=== PATIENT | female | born 1940 | race Caucasian/White ===

== ENCOUNTER 2016-08-07 10:18 | Emergency (ER) | payer OTHER ==
--- NOTE | 2016-08-07 11:17 | EKG Report ---
Test Performed on : 08/07/2016 10:55:06 AM Test Reason : shoulder/arm pain Blood Pressure : / mmHG Vent. Rate : 072 BPM Atrial Rate : 072 BPM P-R Int : 120 ms QRS Dur : 086 ms QT Int : 386 ms P-R-T Axes : 045 -10 016 degrees QTc Int : 422 ms Normal sinus rhythm. Inferior infarct , age undetermined Abnormal ECG When compared with ECG of 17-APR-2012 20:41, No significant change was found Unconfirmed Result
--- NOTE | 2016-08-07 11:31 | ED EKG INTERP ---
EKG Interpretation - EKG Time of EKG reading by physician:: 10:55 EKG Read and Signed by:: Jun Fuller EKG Interpretation (*Must complete 3 of following elements*): Abnormal ( inferior infarct age undetermined) Rate: 72 Rhythm: nsr [place]: normal QRS: normal Attestation - Scribe Verification/Attestation Scribe:: Linda Giron Acting as Scribe for:: Jun Fuller Scribe documention review:: This chart was documented by a scribe and accurately reflects the service the provider performed and the decisions made by the provider. Physician Attestation - Physician Attestation I, the provider, attest to the following statement:: Jun Fuller Physician documentation Attestation:: This documentation recorded by the scribe accurately reflects the service I personally performed and the decisions made by me.
--- NOTE | 2016-08-07 12:27 | PROVIDER DOCUMENTATION ---
HPI-Musculoskeletal Pain/Inj - GENERAL Chief Complaint: Extremity Pain Stated Complaint: SHOULDER/ARM PAIN Time Seen by Provider: 08/07/16 12:16 Source: patient - HX OF PRESENT ILLNESS-MUSKULOSKELTAL Nature of Presenting Problem: 76 yof presents to er with cc of left arm pain denies any injuries reports has arthritis. Reprots just wanted to make sure it wasnt her heart and doesn't want any medications or imaging. Quality of Pain: reports: burning Severity in ED: moderate Onset/Duration: other (long time) Timing: still present Any recent injury?: No Locality of Occurance: Home Similar Symptoms Previously?: Yes Recently seen or treated by another doctor?: No Review of Systems - Adult - REVIEW OF SYSTEMS - ADULT Constitutional: denies: chills, fever, fatique Eyes: reports: no symptoms reported Ears, Nose, Mouth & Throat: reports: no symptoms reported Cardiovascular: denies: chest pain, irregular heart rate, orthopnea, syncope Respiratory: reports: no symptoms reported Gastrointestinal: reports: no symptoms reported Genitourinary: reports: no symptoms reported Musculoskeletal: reports: joint pain. denies: frequent leg cramps (arm/shoulder ), joint swelling, muscle weakness, neck pain Integumentary: reports: no symptoms reported Neurological: reports: no symptoms reported Psychiatric: reports: no symptoms reported Endocrine: reports: no symptoms reported Hematologic/Lymphatic: reports: no symptoms reported Allergic/Immunologic: reports: no symptoms reported All Other Systems: Reviewed and Negative Past History - Adult - PAST MEDICAL HISTORY-ADULT Review of Records: reports: Nursing Assessment Review, Medications Reviewed Major Childhood Illnesses: reports: denies history Endocrine/Immune: reports: thyroid disorder - PRIOR SURGERIES/PROCEDURES Surgical/Procedure History: reports: hysterectomy, tonsillectomy, orthopedic ( extremity) (shoulder sx) Physical Exam-Injury Related - Physical Exam-Injury Related Initial Vital Signs Reviewed: Yes General Appearance: appears well, alert, no apparent distress Eyes: PERRL/EOMI Head, Ears, Nose, Mouth & Throat: normal ENT inspection, TMs normal, pharynx normal Neck: non-tender, full range of motion, supple, normal inspection Respiratory: chest non-tender, lungs clear, normal breath sounds, no pleuratic chest pain, no respiratory distress, no accessory muscle use Cardiovascular: regular rate, rhythm Peripheral Pulses: dorsalis-pedis (R): 2+, dorsalis-pedis (L): 2+ Abdominal Exam: normal bowel sounds, non tender, soft, no organomegaly, no pulsatile mass Back Exam: normal inspection Extremity: non-tender, normal gait. negative: normal range of motion (lrom to left shoulder) Integumentary: normal color, warm/dry Psych/Mental Status: normal mood/affect, normal thought content, normal thought process, oriented x 3 - Glascow Coma Score Best Eye Response ([place]): (4) open spontaneously Best Verbal Response ([place]): (5) oriented Best Motor Response ([place]): (6) obeys commands [place] Total: 15 Progress - PLAN OF CARE/RESULTS Progress/Plan/Lab Results: Orders Category Date Time Status EKG [EKG] Stat Ther 08/07/16 10:49 Draft Vital Signs - 24 hr 08/07/16 10:44 Temperature 98.5 F Pulse Rate 82 Respiratory 18 Rate Blood Pressure 144/70 O2 Sat by Pulse 98 Oximetry Departure - Departure Time of Disposition Order: 12:26 DIAGNOSIS: Osteoarthritis Qualifiers: Osteoarthritis location: shoulder Osteoarthritis type: unspecified Laterality: left Qualified Code(s): M19.012 - Primary osteoarthritis, left shoulder Disposition: HOME 01 Certified Medical Emergency: Emergent Condition: Stable Additional Instructions: Follow up with your ortho doctor ED Follow Up Instructions: You have been treated by a care provider in the Emergency Department. These instructions are being provided to you so you can have an understanding of how to care for yourself upon discharge. Upon discharge from the Emergency Department, you are responsible for making arrangements for follow-up care by a physician of your choice. Take all prescribed medications as directed. Return to the Emergency Department immediately for any new or worsening symptoms. You may call the Physician Referral phone number at [phone] to obtain a list of Physicians who are taking new patients. Attestation - Scribe Verification/Attestation Scribe:: Linda Giron Acting as Scribe for:: Gerber Zhu Scribe documention review:: This chart was documented by a scribe and accurately reflects the service the provider performed and the decisions made by the provider. Physician Attestation - Physician Attestation I, the provider, attest to the following statement:: Gerber Zhu Physician documentation Attestation:: This documentation recorded by the scribe accurately reflects the service I personally performed and the decisions made by me.
[2016-08-07 12:53] VITALS: BP 150/77
== END 2016-08-07 12:57 | disposition home or self-care (01) ==
LOC: ED 10:18
DX: M19.012 Primary osteoarthritis, left shoulder (principal); R94.31 Abnormal electrocardiogram [ECG] [EKG]; M79.602 Pain in left arm; M25.512 Pain in left shoulder; E07.9 Disorder of thyroid, unspecified; Z79.1 Long term (current) use of non-steroidal anti-inflammatories (NSAID); Z79.899 Other long term (current) drug therapy
CPT/HCPCS: 93005